=== PATIENT | female | born 1995 | race Caucasian/White ===

== ENCOUNTER 2020-08-13 19:01 | Emergency (ER) | payer BC ==
[~2020-08-13] VITALS: Ht 172.7 cm; Wt 103.3 kg
[2020-08-13] MEDS ORDERED: ACETAMINOPHEN 500 MG TABLET PO ONE (19:45)
--- NOTE | 2020-08-13 20:01 | PHYS DOC ---
Past History Past Medical History: Hypertension Past Surgical History: No Surgical History Alcohol Use: Occasionally Adult General Chief Complaint Chief Complaint: HAND PROBLEM HPI HPI Patient is a otherwise healthy 25-year-old female who presents with hand pain. States she was walking her dog and got her hand twisted in the leash. States the pain is 6 out of 10, dull and achy in nature, mostly located in her wrist centrally. Denies any other injuries. Review of Systems Review of Systems Review of systems otherwise unremarkable except for noted in HPI Current Medications Current Medications Current Medications Medications (Trade) Dose Ordered Sig/Bharath Start Time Stop Time Status Last Admin Dose Admin Acetaminophen (Tylenol) 1,000 mg 1X ONCE 08/13/20 19:45 08/13/20 19:46 DC Allergies Allergies Allergies Coded Allergies Type Severity Reaction Last Updated Verified No Known Allergies Allergy Unknown 08/13/20 Yes Physical Exam Physical Exam Constitutional: Well developed, well nourished, no acute distress, non-toxic appearance. [] Cardiovascular:Heart rate regular rhythm, no murmur [] Skin: Warm, dry, no erythema, no rash. [] Extremities: No tenderness, no cyanosis, no clubbing, ROM intact, no edema. [] Neurologic: Alert and oriented X 3, normal motor function, normal sensory function, no focal deficits noted. [] Psychologic: Affect normal, judgement normal, mood normal. [] Current Patient Data Vital Signs Vital Signs Date Time Temp Pulse Resp B/P (MAP) Pulse Ox O2 Delivery O2 Flow Rate FiO2 08/13/20 19:01 98.4 84 18 177/100 (125) 98 Room Air EKG EKG [] Radiology/Procedures Radiology/Procedures [] Heart Score Risk Factors: Risk Factors: DM, Current or recent (<one month) smoker, HTN, HLP, family history of CAD, obesity. Risk Scores: Risk Factors: DM, Current or recent (<one month) smoker, HTN, HLP, family history of CAD, obesity. Course & Med Decision Making Course & Med Decision Making Patient is a 25-year-old female who presents with hand pain after getting it caught and dog leash while walking dog Vital signs not concerning. Physical exam noted above. Given ice pack and Tyle nol. Imaging notable for fourth left proximal phalanx fracture, Discussed all findings with patient and gave pain management instructions for home and splint care instructions. Patient states that she goes to [place] for her primary care and would like to have orthopedic follow-up there. Advised to call her primary care physician first thing in the morning to update on ED visit and have them refer her to their Ortho team. Advised she needs to speak with an orthopedic surgeon or at least have an appointment set up by her primary care this week for reevaluation and possible reimaging. Advised to come back to the ED with any new or concerning symptoms. Patient grateful, verbalized understanding and agreed with plan of discharge. Patient grateful, verbalized understanding and agreed with plan of discharge. [] Dragon Disclaimer Dragon Disclaimer This electronic medical record was generated, in whole or in part, using a voice recognition dictation system. Departure Departure: Impression: Primary Impression: Proximal phalanx fracture of finger Disposition: 01 DC HOME SELF CARE/HOMELESS Condition: IMPROVED Referrals: PCP,UNKNOWN (PCP) Patient Instructions: Cast or Splint Care, [id number], Finger Fracture (Phalangeal)-SportsMed Additional Instructions: Please read all the attached information on your fracture and splint care. Please use ibuprofen, ice and your pain medications as needed. Please call your primary care physician first thing in the morning to discuss ED visit and set up a post ER follow-up with both them and the orthopedic surgeon at [place] as discussed. Please come back to the emergency department if you have any new or concerning symptoms are unable to get a hold of an orthopedic surgeon at your primary care facility. Scripts Oxycodone Hcl/Acetaminophen (PERCOCET 10-325 MG TABLET ) 1 Each Tablet 1 TAB PO TID PRN for pain MDD 4 Tablet(s) for 5 Days, #15 TAB 0 Refills Prov: JEWEL YEUNG MD 08/13/20 JEWEL YEUNG MD Aug 13, 2020 20:01
[2020-08-13] MEDS ORDERED: LIDOCAINE 1% Multi-Dose 20 ML VIAL. IJ ONE (20:45)
[2020-08-13] MEDS ORDERED: OXYC1TAB22 PO (21:09)
[2020-08-13 21:15] VITALS: BP 164/102
--- NOTE | 2020-08-13 21:30 | RAD ---
EXAM: PA, oblique and lateral views left hand PA, oblique and lateral views left wrist DATE: 08/13/2020 7:51 PM INDICATION: Reason: left hand and wrist pain, HAND CAUGHT IN DOG COLLAR / Spl. Instructions: / Histo ry: COMPARISON: No Prior FINDINGS/ IMPRESSION: There is an oblique fracture through the proximal phalanx left ring finger with mild foreshortening. Associated soft tissue swelling is seen. Electronically signed by: Prabhakar Gaytan MD (08/13/2020 9:27 PM) [facility]AL
--- NOTE | 2020-08-13 21:50 | RAD ---
EXAM: PA, oblique and lateral views of the left hand DATE: 08/13/2020 8:45 PM INDICATION: Reason: post reduction / Spl. Instructions: / History: COMPARISON: No Prior FINDINGS/ IMPRESSION: Overlying splint is seen limiting evaluation. Mildly displaced oblique fracture proximal phalanx left ring finger in stable alignment with mild foreshortening. Electronically signed by: Prabhakar Gaytan MD (08/13/2020 9:47 PM) [facility]AL
== END 2020-08-13 21:15 | disposition home or self-care (01) ==
LOC: ER 19:01
DX: S62.615A Displaced fracture of proximal phalanx of left ring finger, initial encounter for closed fracture (principal); M25.532 Pain in left wrist; M79.642 Pain in left hand; I10 Essential (primary) hypertension; W54.8XXA Other contact with dog, initial encounter; Y93.K1 Activity, walking an animal; Y92.89 Other specified places as the place of occurrence of the external cause; Y99.8 Other external cause status
CPT/HCPCS: 29125; 73110; 73120; 73130; 96372; 99284